=== PATIENT | female | born 1970 | race Caucasian/White ===

== ENCOUNTER 2016-11-11 06:26 | Day surgery (SDC) | payer OTHER ==
[2016-11-08 10:23] VITALS: BMI 47.7
[2016-11-11] MEDS ORDERED: POLYMYXIN B SULFATE 500,000 UNIT VIAL ONE (07:31)
[2016-11-11] MEDS ORDERED: BUPIVACAINE HCL/PF 2.5 MG/ML - 30 ML VIAL IJ ONE (07:31)
[2016-11-11] MEDS ORDERED: GENTAMICIN SO4 80 MG/2 ML VIAL ONE (07:31)
[2016-11-11] MEDS ORDERED: LIDOCAINE HCL/PF 2% SDV 5ML VIAL ONE (07:47)
[2016-11-11] MEDS ORDERED: ROCURONIUM BROMIDE 50 MG/5 ML VIAL ONE ×2 (07:48→09:25)
[2016-11-11] MEDS ORDERED: PROPOFOL 20 ML ONE ×2 (07:48)
[2016-11-11] MEDS ORDERED: MIDAZOLAM HCL 2 MG/2 ML SINGLE DOSE VIAL ONE (07:48)
[2016-11-11] MEDS ORDERED: SUCCINYLCHOLINE CHLORIDE 200 MG/10 ML VIAL ONE (07:48)
[2016-11-11] MEDS ORDERED: DEXAMETHASONE SOD PHOSPHATE 4 MG/1 ML VIAL ONE ×2 (08:52→09:41)
[2016-11-11] MEDS ORDERED: ONDANSETRON 4 MG/2 ML VIAL ONE ×2 (08:52→09:41)
[2016-11-11] MEDS ORDERED: HYDROmorphone HCL/PF 1 MG/ML VIAL (FOR PYXIS CHARGING ONLY) ONE (09:07)
[2016-11-11] MEDS ORDERED: GLYCOPYRROLATE 0.2 MG/1 ML VIAL ONE (09:41)
[2016-11-11] MEDS ORDERED: NEOSTIGMINE METHYLSULFATE 0.5 MG/ML - 10 ML MDV ONE (09:41)
[2016-11-11] MEDS ORDERED: BUPIVACAINE HCL/PF 0.25% (2.5MG/ML) 10 ML VIAL IJ ONE (10:02)
[2016-11-11] MEDS ORDERED: TRIMETHOBENZAMIDE HCL 200MG/2ML INJ IM PRN (10:25)
[2016-11-11] MEDS ORDERED: MEPERIDINE HCL CARPU-JECT 50 MG/1 ML DISP.SYRIN IM PRN (10:25)
[2016-11-11] MEDS ORDERED: PROMETHAZINE HCL 50 MG/1 ML AMP IM PRN (10:25)
[2016-11-11] MEDS ORDERED: SODIUM CHLORIDE 1,000 ML IV SCH (10:30)
[2016-11-11] MEDS ORDERED: FAMOTIDINE 20 MG/50 ML IVPB 50 ML IVPB ONE (10:31)
[2016-11-11] MEDS ORDERED: FAMOTIDINE 20 MG PREMIXED IVPB IVPB ONE (10:35)
[2016-11-11 10:56] LABS: MCH 26.2 pg (25.7-33.7); MCHC 32.9 g/dl (32.0-36.0); MEAN CELL VOLUME 79.6 fl (80-96); MEAN PLT VOLUME 7.9 fl (7.5-11.1); PLATELET COUNT 280 K/MM3 (134-434); RDW 14.2 % (11.6-15.6); WHITE BLOOD COUNT 10.6 K/mm3 (4.0-10.8)
[2016-11-11 12:16] LABS: CALCIUM 8.5 mg/dl (8.4-10.2); COCKROFT - GAULT 187.816; CREATININE 0.8 mg/dl (0.6-1.3)
[2016-11-11 13:44] VITALS: TEMP 98.2
[2016-11-11] MEDS ORDERED: ENOXAPARIN NA (PORCINE) 40 MG/0.4 ML DISP.SYRIN SQ ONE ×2 (13:53→14:00)
[2016-11-11 17:04] VITALS: BP 131/85; PULSE 82
[2016-11-11] MEDS ORDERED: FAMOTIDINE 20 MG/50 ML IVPB 50 ML IVPB SCH (22:00)
--- NOTE | 2016-11-11 23:06 | OP ---
DATE OF OPERATION: 11/11/2016 PREOPERATIVE DIAGNOSIS: 1. Morbid obesity. 2. Sleep apnea. 3. Elevated liver function test. POSTOPERATIVE DIAGNOSIS: 1. Morbid obesity. 2. Sleep apnea. 3. Elevated liver function test. 4. Hepatomegaly. PROCEDURE PERFORMED: 1. Gastric band for gastric restriction. 2. Wedge biopsy of left lobe of liver. 3. Diagnostic laparoscopy. OPERATING SURGEON: Jeffry Zhu M.D. PRESS OPERATOR [employer] SURGEON: Anish Portillo M.D. ANESTHESIA: General. OPERATIVE PROCEDURE: The patient was brought into the operating room and was placed on the OR table in the supine position. All precautions were taken initially including padding for the back and the feet, and Venodyne boots were placed on both lower extremities. At that point, the abdomen was prepped and draped in the usual manner. A Veress needle was placed in the left upper quadrant, and a pneumoperitoneum was established. A number 12 bladeless trocar was placed in the left upper quadrant through the trocar, laparoscopic camera was placed. Under direct vision, a number 5 and 15 bladeless trocar was placed in the right upper quadrant, and a number 12 bladeless trocar below the left costal margin. A Dinorah liver retractor was then placed in the epigastrium to retract the left lobe of the liver. The left lobe was extremely enlarged, more than usual, and the elevated liver function tests, and it was decided that a liver biopsy would be performed. With the electrocautery turned high, on the left lobe of the liver, on the inferior edge, first the capsule then the parenchyma was scored with the electrocautery until a wedge biopsy was taken. Specimen sent off the field to pathology and the parenchyma of the liver was easily controlled the bleeding with electrocautery. At this point, the patient was then placed in 20-degree reverse Trendelenburg position. The operations and intelligence assistant surgeon retracted the omentum in the left upper quadrant inferiorly, and the operating surgeon retracted the stomach toward the patient's right side. This exposed the left esophagogastric junction, and electrocautery was used to score the perineum of the left esophagogastric junction and continued superiorly until the left marcial of the diaphragm was noted. Stomach was then pulled to the patient's left side by the operations and intelligence assistant surgeon as the operating surgeon noted the cordate lobe of the liver. An opening was made in the avascular plane, and the gastrohepatic ligament was partially divided with hemoclips up to the right esophagogastric junction. The right marcial of the diaphragm was noted in the perineum; anterior to it was scored with electrocautery. Laparoscopic instrument was then used to make a blunt tunnel from the right to the left marcial until it was free in the left upper quadrant of the abdomen. The gastric band, which was an AP large band, was then prepped by the OR team and placed in the number 15 port site. The band tube was placed at the laparoscopic instrument, which was pulled and drawn to the patient's right side. The band tube was placed with the band buckle, which was tied and cinched down, and the band rotated to the patient's right side. Laparoscopic instrument easily fit between the band and the anterior stomach wall. The band stomach so it was above and below the band and tied over the band. When it was completed, the band tubing number 15 port site and under direct vision all trocars were removed, and pneumoperitoneum was released. The number 15 port site was extended laterally and dissection continued down to the right anterior rectus muscle fascia. 2-0 Prolene sutures were placed on all 4 sides, and the port was then tacked to right anterior rectus muscle. All trocar sites then received 0.25% Marcaine, were closed with 4-0 Biosyn subcuticular fashion except for the port site, which first was closed with 3-0 Vicryl in the subcutaneous, followed by 4-0 Biosyn subcuticular fashion. Dressings were applied, patient awoken from anesthesia and transferred out of the operating room to recovery room in stable condition. ESTIMATED BLOOD LOSS: 30 mL. Emelia [id number]
--- NOTE | 2016-11-13 14:49 | PATH ---
Surgical Pathology Report Patient Name: TATYANA CARRASQUILLO [facility]. Rec. #: [id number] /Age/Gender: 1970 (Age: 46) / F Account: [id number] Location: [facility] AMBULATORY Taken: 11/11/2016 Received: 11/11/2016 Reported: 11/13/2016 Physicians: Jeffry Zhu M.D. Specimen(s) Received LIVER BX Clinical History Morbid obesity Final Diagnosis LIVER, BIOPSY: LIVER SHOWING STEATOHEPATITIS, GRADE 2 ( MARKED STEATOSIS (~70%) WITH INTRA-ACINAR NEUTROPHILS, FOCI OF HEPATOCYTE BALLOONING AND MILD TO MODERATE PORTAL AND ACINAR CHRONIC INFLAMMATION). TRICHROME STAIN SHOWS PERISINUSOIDAL/PERICELLULAR FIBROSIS AND FOCAL PERIPORTAL FIBROSIS (STAGE 2). IRON STAIN IS NEGATIVE. Electronically Signed Heide Kumar M.D. Gross Description Received in formalin labeled "liver biopsy," is a 1.9 x 1.3 x 0.3 cm portion of parnell soft tissue. The specimen is submitted in toto in one cassette. 11/12/201611/12/2016
== END 2016-11-11 15:45 | disposition home or self-care (01) ==
LOC: FASU 06:26
PROVIDERS: ATTEND Surgery
PROC: 0FB24ZX Excision of Left Lobe Liver, Percutaneous Endoscopic Approach, Diagnostic (ICD-10-PCS; 2016-11-11)
PROC: 0DV64CZ Restriction of Stomach with Extraluminal Device, Percutaneous Endoscopic Approach (ICD-10-PCS; principal; 2016-11-11 09:09)
DX: E66.01 Morbid (severe) obesity due to excess calories (principal); Z68.42 Body mass index [BMI] 45.0-49.9, adult; G47.30 Sleep apnea, unspecified; R94.5 Abnormal results of liver function studies; R16.0 Hepatomegaly, not elsewhere classified
CPT/HCPCS: 36415; 74241-TC; 80048; 84703; 85027; 88307-TC; 88313-TC; 94010; 94760